=== PATIENT | female | born 1960 | race Caucasian/White ===

== ENCOUNTER 2022-06-05 08:02 | Outpatient (CLI) | payer OTHER, SELFPAY ==
--- NOTE | ~2022-06-05 | US_ITS ---
EXAMINATION: US abdomen complete DATE: 06/05/2022 08:40 INDICATION: LUQ ABDOMINAL PAIN TECHNIQUE: Multiple grayscale and Doppler ultrasound images of the abdomen were obtained. COMPARISON: None available. FINDINGS: The visualized portions of the pancreas are normal. The liver is normal with normal echogen icity and echotexture. No surface nodularity. Normal hepatopetal flow in the main portal vein. The ga llbladder is normal with no abnormal wall thickening, pericholecystic fluid or stones. The common slime e duct measures 3 mm. There was no sonographic Pozo sign. The visualized portions of the aorta and inferior vena cava are normal. The right kidney measures 10.1 x 4.2 x 4.1. The left kidney measures 10.2 x 4.2 x 4.6. The kidneys de monstrate normal parenchymal echogenicity. There is no hydronephrosis. The spleen is normal in appear ance and measures 9.9 cm. IMPRESSION: Normal abdominal ultrasound findings. Reviewed, dictated and finalized at location K.
== END 2022-06-05 08:03 | disposition home or self-care (01) ==
LOC: CHSIMG 08:07
PROVIDERS: PCP Family Medicine; Visit Provider Registered Nurse
DX: R10.12 Left upper quadrant pain (principal)
CPT/HCPCS: 76700

== ENCOUNTER 2023-04-14 13:57 | Outpatient (CLI) | payer OTHER, SELFPAY ==
--- NOTE | 2023-04-14 14:02 | ECG_ITS ---
Measurements Intervals [place] Rate: 81 P: 74 DE: 180 QRS: -70 QRSD: 148 T: 68 QT: 415 QTc: 484 Interpretive Statements SINUS RHYTHM WITH OCCASIONAL VENTRICULAR PREMATURE COMPLEXES RIGHT BUNDLE BRANCH BLOCK LEFT ANTERIOR FASCICULAR BLOCK BORDERLINE ECG NO PREVIOUS ECG AVAILABLE FOR COMPARISON Electronically Signed On 04-14-2023 16:37:56 CDT by Alfredo Bermudez M.D.
== END 2023-04-14 13:58 | disposition home or self-care (01) ==
LOC: CHSCARD 13:58
PROVIDERS: PCP Family Medicine; Visit Provider Internal Medicine Cardiovascular Disease
DX: R06.09 Other forms of dyspnea (principal); I45.2 Bifascicular block
CPT/HCPCS: 93005

== ENCOUNTER 2023-05-19 08:14 | Outpatient (CLI) | payer OTHER, SELFPAY ==
--- NOTE | 2023-05-19 08:18 | EST_ITS ---
Patient Info Name: Marina Russ Age: 62 years : 1960 Gender: Female Ht: 63 in Wt: 117 lbs BSA: 1.54 m2 HR: 83 bpm BP: 129 / 58 mmHg Heart Rhythm: Right Bundle Branch Block Technical Quality: Good Exam Date: 05/19/2023 9:42 AM Exam Location: Echo Lab Patient Status: Outpatient Admit Date: 05/19/2023 Staff Ordering Physician: Edgardo Castro DO Attending Provider: Edgardo Castro DO Exam Type: CA stress robin w NM Study Info A regadenoson stress test was performed. History/Risk Factors Hypertension: Yes Dyslipidemia: Yes History/Risk Factors valve insufficiency. Summary 1. 1. Negative lexiscan stress test for ischemic ST changes by ECG criteria. 2. 2. Stable hemodynamics throughout the test. 3. 3. Nuclear scan to follow and will be reported separately. Please correlate with it. Protocol: LEXISCAN Stress ECG Details Stage: REST Duration (min): 1 min : 20 sec HR (bpm): 83 SBP (mmHg): 129 DBP (mmHg): 58 Stage: REST Duration (min): 6 min : 56 sec HR (bpm): 87 SBP (mmHg): 129 DBP (mmHg): 58 Stage: STAGE 1 Duration (min): 0 min : 24 sec HR (bpm): 72 SBP (mmHg): 129 DBP (mmHg): 58 Stage: RECOVERY Duration (min): 0 min : 35 sec HR (bpm): 94 SBP (mmHg): 129 DBP (mmHg): 58 Stage: RECOVERY Duration (min): 1 min : 35 sec HR (bpm): 115 SBP (mmHg): 129 DBP (mmHg): 58 Stage: RECOVERY Duration (min): 2 min : 35 sec HR (bpm): 112 SBP (mmHg): 129 DBP (mmHg): 58 Stage: RECOVERY Duration (min): 3 min : 35 sec HR (bpm): 109 SBP (mmHg): 196 DBP (mmHg): 79 Stage: RECOVERY Duration (min): 4 min : 35 sec HR (bpm): 106 SBP (mmHg): 183 DBP (mmHg): 63 Stage: RECOVERY Duration (min): 5 min : 35 sec HR (bpm): 100 SBP (mmHg): 187 DBP (mmHg): 73 Stage: RECOVERY Duration (min): 6 min : 35 sec HR (bpm): 99 SBP (mmHg): 187 DBP (mmHg): 73 Stage: RECOVERY Duration (min): 7 min : 35 sec HR (bpm): --- SBP (mmHg): 178 DBP (mmHg): 67 Stage: RECOVERY Duration (min): 7 min : 43 sec HR (bpm): --- SBP (mmHg): 178 DBP (mmHg): 67 Rest HR: 87 bpm Peak HR: 115 bpm Rest Sys BP: 129 mmHg Peak Sys BP: 196 mmHg Max Pred HR: 156 bpm % Max Pred HR: 74 % Target HR: 133 bpm Max RPP: 22,540 bpm*mmHg Termination Reason: Completed Protocol Total Time: 0 min : 24 sec Rest Mendez BP: 58 mmHg Peak Mendez BP: 79 mmHg Total Dose: 0.4 mg Resting ECG Sinus rhythm with RBBB and Lt anterior fascicular block. Stress ECG No abnormal ST/T wave changes. Arrhythmias No arrhythmias were observed during the examination. Report Signatures
--- NOTE | 2023-05-19 16:40 | WPDCARIOSTRE ---
Nuclear Stress Test INDICATIONS Indications: Dyspnea PROCEDURE Procedure Performed: Myocardial Perf Spect-Multi Procedure: Patient underwent a lexiscan stress test and immediately was injected with 30.0 mCi of cardiolyte. Multiple tomographic images were obtained. These are of good quality. There is no perfusion defect with stress imaging. A separate resting images were obtained after patient was injected with 10.0 mCi of cardiolyte. Multiple tomographic images were obtained. These are of good quality. There is no perfusion defect with rest imaging. CONCLUSION Conclusion: 1. Normal myocardial perfusion imaging demonstrating no perfusion defect with stress or rest imaging. 2. No evidence of reversible ischemia. 3. Left ventriculogram demonstrates normal measured ejection fraction that is hyperdynamic at 74% with no wall motion abnormalities. 4. TID score 1.06 is normal.
== END 2023-05-19 08:15 | disposition home or self-care (01) ==
LOC: CHSCARD 08:15
PROVIDERS: PCP Family Medicine; Visit Provider Internal Medicine Cardiovascular Disease
DX: R06.09 Other forms of dyspnea (principal)
CPT/HCPCS: 78452; 93017; A9502; J2785

== ENCOUNTER 2024-02-07 19:55 | Outpatient (CLI) | payer OTHER, SELFPAY ==
[2024-02-23 13:09] VITALS: BMI 23.2
--- NOTE | 2024-02-23 13:09 | WPDSLEEPSTUD ---
Sleep Study Date of Study: 02/07/24 Ordering Provider: Edgardo Castro DO Interpreting Physician: Tracie Cooper DO Sleep Study Type: Split Polysomnogram Height: 1.57 m Weight: 57.606 kg Body Mass Index: 23.2 Neck Circumference (inches): 13.25 Falcon: 6 Reason for Sleep Study Daytime hypersomnia Sleep History The patient is a 63-year-old female that had a sleep study ordered by her drug safety coordinator for heart palpitations.? She denies awakening from sleep short of breath.? She denies awakening at night with heartburn, belching or cough.? She frequently snores and is occasionally loud enough that others complain.? She rarely has trouble sleeping when she has a cold.? She denies waking up gasping for air throughout the night.? She denies having breathing problems at night observed by herself or others.? He denies sweating excessively at night.? She denies having heart palpitations or irregular heartbeats during the night.? She denies falling asleep during the day and while driving.? She denies sleep paralysis, cataplexy and hypnagogic / hypnopompic hallucinations.? She denies having trouble at school or work due to sleepiness.? She denies feeling afraid of going to sleep.? She denies having nightmares.? She denies remembering her dreams.? She denies having thoughts racing through her mind.? She denies feeling sad, depressed and anxious.? She denies having muscular tension.? She denies noticing parts of her body jerk.? She denies kicking during the night.? She rarely has crawling and aching feelings in her legs and never has leg pain during the night.? She denies grinding her teeth during sleep and denies awakening with morning jaw pain.? She is constantly bothered by pain during the day but never awakened by pain during the night.? She occasionally wakes up feeling stiff in the morning.? She occasionally wakes up with sore or achy muscles.? She occasionally wakes up with pain in the neck, spine other joints.? She goes to bed at 9:00 p.m. on weekdays and at midnight on the weekends.? She is able to fall asleep immediately.? She wakes up twice throughout the night to urinate and is able to fall back asleep immediately.? She wakes up at 7:00 a.m. on weekdays and 8:00 a.m. on the weekends.? She typically gets 7 8 hours of sleep per night.? She does not stay in bed after waking up in the morning.? She currently lives with her adult child and 2 grandchildren.? She denies consuming any caffeinated beverages within 2 hours of bedtime.? She denies engaging in physical exercise before bedtime.? She will watch television before falling asleep.? She denies taking naps in the afternoon or the evening.? She consumes 6 caffeinated beverages per day.? She denies tobacco and alcohol use. She does use an unspecified recreational drug. [facility] Surgical History Surgical History H/O LEEP H/O tubal ligation History of hip replacement, total Social History Social History Smoking status: Never smoker Alcohol intake: never Medications Home Medications Medication Instructions Recorded Confirmed Type alendronate 10 mg tablet 10 mg PO QAM 03/06/23 02/23/24 History ascorbate calcium (vitamin C) 500 500 mg PO BID 03/06/23 02/23/24 History mg tablet cholecalciferol (vitamin D3) 50 50 mcg PO DAILY 03/06/23 02/23/24 History mcg (2,000 unit) capsule levothyroxine 25 mcg capsule 25 mcg PO DAILY 03/06/23 02/23/24 History multivitamin 1 tablet PO DAILY 03/06/23 02/23/24 History vitamin E mixed 100 unit tablet 100 unit PO DAILY 03/06/23 02/23/24 History turmeric 400 mg capsule mg PO DAILY 08/25/23 02/23/24 History Sleep Procedure A full night polysomnogram using the [employer] multi-channel system recorded the standard physiologic parameters including EEG, EOG, submentalis EMG, anterior tibialis EMG, EKG, body position, nasal and oral airflow
== END 2024-02-08 06:30 | disposition home or self-care (01) ==
PROVIDERS: PCP Family Medicine; Visit Provider Internal Medicine Cardiovascular Disease
DX: G47.10 Hypersomnia, unspecified (principal)
CPT/HCPCS: 95811

== ENCOUNTER 2024-04-14 12:19 | Outpatient (CLI) | payer OTHER, SELFPAY ==
--- NOTE | 2024-04-14 12:32 | ECHO_ITS ---
Patient Info Name: Marina Russ Age: 63 years : 1960 Gender: Female Ht: 62 in Wt: 128 lbs BSA: 1.60 m2 HR: 138 bpm BP: 132 / 77 mmHg Technical Quality: Fair Exam Date: 04/14/2024 12:43 PM Exam Location: Echo Lab Patient Status: Outpatient Admit Date: 04/14/2024 Staff Ordering Physician: Edgardo Castro DO Ocean Fishing Guide: Zaid Akers RDCS Attending Provider: Edgardo Castro DO Referring Physician: Matthew CROCKETT; Exam Type: CA echo doppler color flow Study Info Indications I35.1 - Nonrheumatic aortic (valve) insufficiency Complete two-dimensional, color flow and Doppler transthoracic echocardiogram is performed. History/Risk Factors Hypertension: Yes Dyslipidemia: Yes Summary 1. Complete two-dimensional, color flow and Doppler transthoracic echocardiogram is performed. 2. Left ventricular chamber dimension is normal. 3. Left ventricular systolic function is normal, estimated at 65-70%. 4. The left ventricular diastolic function is grade I diastolic dysfunction. 5. E/e' 12 is mildly elevated. 6. There is moderate aortic valve sclerosis. 7. There is moderate aortic valve regurgitation. 8. There is mild mitral valve regurgitation. 9. No pulmonary hypertension, estimated pulmonary arterial systolic pressure is 21 mmHg. Left Ventricle E/e' 12 is mildly elevated. Left ventricular chamber dimension is normal. Left ventricular systolic function is normal, estimated at 65-70%. The left ventricular diastolic function is grade I diastolic dysfunction. Right Ventricle Right ventricular systolic function is normal and with normal TAPSE 1.9 cm. Right ventricular chamber dimension is normal. Left Atria Left atrial chamber dimension is normal. Right Atria Right atrial chamber dimension is normal. Aortic Valve The aortic valve is trileaflet. There is moderate aortic valve sclerosis. There is no aortic valve stenosis. There is moderate aortic valve regurgitation. Pulmonic Valve There is no pulmonic regurgitation. Mitral Valve There is no mitral valve stenosis. There is mild mitral valve regurgitation. Tricuspid Valve There is no tricuspid valve regurgitation. No pulmonary hypertension, estimated pulmonary arterial systolic pressure is 21 mmHg. Pericardium/Pleural There is no pericardial effusion. Inferior Vena Cava Normal inferior vena cava with >50% collapse upon inspiration consistent with normal right atrial pressure, 5 mmHg. Aorta The aortic root size at the sinus of Valsalva is normal. Left Ventricular Outflow Tract Name Value Normal LVOT 2D LVOT Diameter 1.9 cm LVOT Doppler LVOT Peak Gradient 10 mmHg LVOT Mean Gradient 4 mmHg LVOT VTI 31 cm LVOT VTI/AV VTI Ratio 0.7 LVOT Stroke Volume 87 ml LVOT CO 5.0 l/min LVOT CI 3.1 l/min/m2 Pulmonic Valve Name Value Normal PV D
== END 2024-04-14 12:20 | disposition home or self-care (01) ==
LOC: ANHCARD 12:20
PROVIDERS: PCP Family Medicine; Visit Provider Internal Medicine Cardiovascular Disease
DX: I35.1 Nonrheumatic aortic (valve) insufficiency (principal)
CPT/HCPCS: 93306